=== PATIENT | female | born 1970 | race Caucasian/White ===

== ENCOUNTER 2023-08-30 12:06 | Inpatient (IN) | payer SELFPAY ==
[2023-08-30 13:00] LABS: #Basophils 0.05 10x3/uL (0.0-0.2); %Basophils 0.6 % (0.0-1.0); %Eosinophils 1.9 % (0.0-10.0); %Lymphocytes 12.5 % (21.0-51.0); %Monocytes 6.2 % (0.0-10.0); %Neutrophils 76.9 % (42.0-75.0); Hematocrit 38.4 % (36.0-47.0); Hemoglobin 13.8 g/dL (12.0-16.0); Mean Corpuscular HGB CONC 35.9 g/dL (32.0-36.0); Mean Corpuscular Volume 86.3 fL (78.0-98.0); Mean Platelet Volume 8.7 fL (7.4-10.4); Platelet Count 374 10x3/uL (130-400); RBC Distribution Width 11.5 % (11.5-14.5); Red Blood Cell (RBC) Count 4.45 mill/uL (4.20-5.40)
[2023-08-30 13:10] LABS: ALT (SGPT) 21 U/L (8-55); AST (SGOT) 13 U/L (5-34); Albumin 3.8 g/dL (3.5-5.0); Alkaline Phosphatase 83 U/L (40-110); Anion Gap 12 mmol/L (10-20); BUN (Urea Nitrogen) 14 mg/dL (9.8-20.1); Bilirubin, Total 0.3 mg/dL (0.2-1.2); Calc. Creatinine Clearance 0 mL/min (70-130); Carbon Dioxide 24 mmol/L (22-29); Chloride 91 mmol/L (98-107); Estimated GFR 71; Globulin 3.2 g/dL (2.4-3.5); Glucose 255 mg/dL (70-105); Potassium 4.2 mmol/L (3.5-5.1); Sodium 123 mmol/L (136-145)
[2023-08-30 13:14] LABS: Troponin I Less than 0.010 ng/mL (< 0.028)
[2023-08-30] MEDS ORDERED: Orphenadrine Citrate 60 MG/2 ML VIAL ONE (13:25)
[2023-08-30] MEDS ORDERED: fentaNYL 50 mcg/mL 1 mL Vial ONE (13:25)
[2023-08-30] MEDS ORDERED: Dextrose 50% Abboject 50 ML SYRINGE SLOW IVP PRN (15:14)
[2023-08-30] MEDS ORDERED: Glucagon 1 MG/ML KIT IM PRN (15:14)
[2023-08-30] MEDS ORDERED: Dextrose 5% in Water 1,000 ML IV PRN (15:14)
[2023-08-30 16:10] LABS: Cardiac Risk 2.6 (Less than 4.5)
[2023-08-30] MEDS: HYDROcodone/Acetaminophen 5/325 mg Tablet PO PRN (18:19)
[2023-08-30] MEDS: Sodium Chloride 0.9% 1,000 ML IV SCH (18:20)
[2023-08-30 18:47] VITALS: BMI 38.8
[2023-08-30] MEDS: Atorvastatin Calcium 40 MG TAB PO SCH (20:25)
[2023-08-30] MEDS: OLANZapine 5 MG TAB PO SCH (20:25)
[2023-08-30] MEDS: Gabapentin 300 MG CAP PO SCH (20:25)
[2023-08-30] MEDS: Doxepin HCl 25 MG CAP PO SCH (20:26)
[2023-08-30 20:39] LABS: Anion Gap 20 mmol/L (10-20); BUN (Urea Nitrogen) 15 mg/dL (9.8-20.1); Calc. Creatinine Clearance 118 mL/min (70-130); Carbon Dioxide 20 mmol/L (22-29); Chloride 90 mmol/L (98-107); Estimated GFR 71; Glucose 190 mg/dL (70-105); Potassium 3.7 mmol/L (3.5-5.1); Sodium 126 mmol/L (136-145)
[2023-08-30] MEDS: OXcarbazepine 300 MG TAB PO SCH (21:51)
[2023-08-31 04:51] LABS: Anion Gap 16 mmol/L (10-20); BUN (Urea Nitrogen) 15 mg/dL (9.8-20.1); Calc. Creatinine Clearance 130 mL/min (70-130); Calcium 8.7 mg/dL (7.8-10.44); Carbon Dioxide 23 mmol/L (22-29); Chloride 91 mmol/L (98-107); Estimated GFR 80; Glucose 221 mg/dL (70-105); Potassium 3.6 mmol/L (3.5-5.1); Sodium 126 mmol/L (136-145)
[2023-08-31] MEDS: Levothyroxine Sodium 50 MCG TAB PO SCH (05:02)
[2023-08-31] MEDS: hydrALAZINE 20 MG/ML VIAL SLOW IVP SCH (05:03)
[2023-08-31] MEDS: Insulin Regular, Human 100 UNIT/ML 10 ML VIAL SC PRN (06:56)
[2023-08-31] MEDS: Enoxaparin 40 MG (0.4 mL) SYRINGE SC SCH (08:42)
[2023-08-31] MEDS: Amlodipine 10 MG TAB PO SCH (08:44)
[2023-08-31] MEDS: FLUoxetine HCl 20 MG CAP PO SCH (08:45)
[2023-08-31] MEDS: OXcarbazepine 300 MG TAB PO SCH (08:45)
[2023-08-31] MEDS: metFORMIN 500 MG TAB PO SCH (08:45)
[2023-08-31] MEDS: NS 0.9% w/ 20 MEQ KCL 1,000 ML/1,000 ML BAG IV SCH (15:58)
[2023-08-31] MEDS: Lisinopril 10 MG TAB PO SCH (15:58)
[2023-09-01 07:01] LABS: #Basophils 0.04 10x3/uL (0.0-0.2); %Basophils 0.6 % (0.0-1.0); %Eosinophils 1.9 % (0.0-10.0); %Monocytes 7.5 % (0.0-10.0); %Neutrophils 69.6 % (42.0-75.0); Hematocrit 37.6 % (36.0-47.0); Hemoglobin 12.9 g/dL (12.0-16.0); Mean Corpuscular HGB CONC 34.3 g/dL (32.0-36.0); Mean Corpuscular Hemoglobin 31.1 pg (27.0-31.0); Mean Corpuscular Volume 90.6 fL (78.0-98.0); Platelet Count 324 10x3/uL (130-400); RBC Distribution Width 11.8 % (11.5-14.5); Red Blood Cell (RBC) Count 4.15 mill/uL (4.20-5.40)
[2023-09-01 07:17] LABS: Anion Gap 17 mmol/L (10-20); BUN (Urea Nitrogen) 13 mg/dL (9.8-20.1); Calc. Creatinine Clearance 150 mL/min (70-130); Carbon Dioxide 20 mmol/L (22-29); Chloride 97 mmol/L (98-107); Estimated GFR 99; Glucose 190 mg/dL (70-105); Potassium 4.4 mmol/L (3.5-5.1); Sodium 130 mmol/L (136-145)
[2023-09-01] MEDS: Lisinopril 10 MG TAB PO SCH (09:05)
[2023-09-02] MEDS: dilTIAZem 25 MG/5 ML VIAL SLOW IVP SCH (01:10)
[2023-09-02 02:02] LABS: Magnesium 1.1 mg/dL (1.6-2.6)
[2023-09-02] MEDS: Magnesium 2 GM/50 ML(in water) 2 GM in Premix 1 BAG IVPB SCH (02:28)
[2023-09-02 06:15] LABS: Anion Gap 17 mmol/L (10-20); BUN (Urea Nitrogen) 14 mg/dL (9.8-20.1); Calc. Creatinine Clearance 123 mL/min (70-130); Calcium 9.2 mg/dL (7.8-10.44); Carbon Dioxide 20 mmol/L (22-29); Chloride 96 mmol/L (98-107); Estimated GFR 77; Glucose 217 mg/dL (70-105); Potassium 4.8 mmol/L (3.5-5.1); Sodium 128 mmol/L (136-145)
[2023-09-02] MEDS ORDERED: Iopamidol 370 76% 100 ML VIAL ONE (13:03)
[2023-09-02] MEDS: Acetaminophen 325 MG TAB PO PRN (23:37)
[2023-09-03 06:37] LABS: Anion Gap 17 mmol/L (10-20); BUN (Urea Nitrogen) 17 mg/dL (9.8-20.1); Calc. Creatinine Clearance 143 mL/min (70-130); Calcium 9.2 mg/dL (7.8-10.44); Carbon Dioxide 21 mmol/L (22-29); Chloride 91 mmol/L (98-107); Estimated GFR 87; Glucose 204 mg/dL (70-105); Potassium 4.4 mmol/L (3.5-5.1); Sodium 125 mmol/L (136-145)
[2023-09-03] MEDS: Sodium Chloride 1 GM TAB PO SCH ×2 (15:50→21:34)
[2023-09-04 08:11] LABS: Anion Gap 15 mmol/L (10-20); BUN (Urea Nitrogen) 12 mg/dL (9.8-20.1); Calc. Creatinine Clearance 161 mL/min (70-130); Calcium 9.1 mg/dL (7.8-10.44); Carbon Dioxide 21 mmol/L (22-29); Chloride 90 mmol/L (98-107); Estimated GFR 101; Glucose 224 mg/dL (70-105); Potassium 4.2 mmol/L (3.5-5.1); Sodium 122 mmol/L (136-145)
[2023-09-04] MEDS: Diazepam 10 MG/2 ML SYRINGE IVP SCH ×2 (10:38)
[2023-09-04] MEDS: FLUoxetine HCl 20 MG CAP PO SCH (13:08)
[2023-09-04] MEDS: Sodium Chloride 1 GM TAB PO SCH (15:26)
[2023-09-04] MEDS: cloNIDine 0.1 MG TAB PO SCH (21:22)
[2023-09-04 22:13] LABS: Anion Gap 20 mmol/L (10-20); BUN (Urea Nitrogen) 15 mg/dL (9.8-20.1); Calc. Creatinine Clearance 155 mL/min (70-130); Calcium 9.6 mg/dL (7.8-10.44); Carbon Dioxide 21 mmol/L (22-29); Chloride 89 mmol/L (98-107); Estimated GFR 96; Glucose 209 mg/dL (70-105); Potassium 5.2 mmol/L (3.5-5.1); Sodium 125 mmol/L (136-145)
[2023-09-05] MEDS ORDERED: Calcium Carbonate 500 MG ChewTAB PO PRN (02:38)
[2023-09-05] MEDS: Bisacodyl 5 MG TAB PO SCH (05:46)
[2023-09-05] MEDS: FLUoxetine HCl 20 MG CAP PO SCH (09:39)
[2023-09-05 11:05] LABS: Anion Gap 17 mmol/L (10-20); BUN (Urea Nitrogen) 15 mg/dL (9.8-20.1); Calc. Creatinine Clearance 149 mL/min (70-130); Calcium 9.1 mg/dL (7.8-10.44); Carbon Dioxide 21 mmol/L (22-29); Chloride 90 mmol/L (98-107); Estimated GFR 91; Glucose 288 mg/dL (70-105); Potassium 4.6 mmol/L (3.5-5.1); Sodium 123 mmol/L (136-145)
[2023-09-05] MEDS: Sodium Chloride 1 GM TAB PO SCH (20:40)
[2023-09-05 22:09] LABS: Anion Gap 17 mmol/L (10-20); BUN (Urea Nitrogen) 15 mg/dL (9.8-20.1); Calc. Creatinine Clearance 153 mL/min (70-130); Calcium 9.3 mg/dL (7.8-10.44); Carbon Dioxide 18 mmol/L (22-29); Chloride 90 mmol/L (98-107); Estimated GFR 94; Glucose 182 mg/dL (70-105); Potassium 4.5 mmol/L (3.5-5.1); Sodium 120 mmol/L (136-145)
[2023-09-06 09:11] LABS: Anion Gap 16 mmol/L (10-20); BUN (Urea Nitrogen) 14 mg/dL (9.8-20.1); Calc. Creatinine Clearance 159 mL/min (70-130); Calcium 8.8 mg/dL (7.8-10.44); Carbon Dioxide 20 mmol/L (22-29); Chloride 91 mmol/L (98-107); Estimated GFR 99; Glucose 227 mg/dL (70-105); Potassium 4.5 mmol/L (3.5-5.1); Sodium 122 mmol/L (136-145)
[2023-09-06 12:17] VITALS: BMI 39.6
[2023-09-06] MEDS: cloNIDine 0.2 MG TAB PO SCH (21:32)
[2023-09-07 07:50] LABS: Anion Gap 15 mmol/L (10-20); BUN (Urea Nitrogen) 18 mg/dL (9.8-20.1); Calc. Creatinine Clearance 145 mL/min (70-130); Calcium 8.8 mg/dL (7.8-10.44); Carbon Dioxide 22 mmol/L (22-29); Chloride 90 mmol/L (98-107); Estimated GFR 89; Glucose 205 mg/dL (70-105); Potassium 4.4 mmol/L (3.5-5.1); Sodium 123 mmol/L (136-145)
[2023-09-07] MEDS: NIFEdipine XL 30 MG ER.TAB PO SCH (08:36)
[2023-09-07] MEDS: Sodium Chloride 1 GM TAB PO SCH (15:17)
[2023-09-08 06:31] LABS: Anion Gap 15 mmol/L (10-20); BUN (Urea Nitrogen) 17 mg/dL (9.8-20.1); Calc. Creatinine Clearance 170 mL/min (70-130); Calcium 8.9 mg/dL (7.8-10.44); Carbon Dioxide 19 mmol/L (22-29); Chloride 99 mmol/L (98-107); Estimated GFR 105; Glucose 230 mg/dL (70-105); Potassium 4.6 mmol/L (3.5-5.1); Sodium 128 mmol/L (136-145)
[2023-09-08 13:06] VITALS: BP 156/99; TEMP 97.6
== END 2023-09-08 15:55 | disposition home or self-care (01) | DRG 644 ==
LOC: SUATTDRO 12:06 → ERS 12:06 → 2SW 14:35 → OBSVTOIN 08-31 08:06 → SURG A 09-05 13:54
PROVIDERS: ADMIT Family Medicine; ATTEND Internal Medicine Critical Care Medicine
DX: E22.2 Syndrome of inappropriate secretion of antidiuretic hormone (principal); S22.089A Unspecified fracture of T11-T12 vertebra, initial encounter for closed fracture; E11.9 Type 2 diabetes mellitus without complications; I10 Essential (primary) hypertension; E78.5 Hyperlipidemia, unspecified; Z96.642 Presence of left artificial hip joint; W19.XXXA Unspecified fall, initial encounter; F31.9 Bipolar disorder, unspecified; Z90.710 Acquired absence of both cervix and uterus; Z98.890 Other specified postprocedural states
CPT/HCPCS: 36415; 36416; 70450; 71275; 72125; 72131; 80048; 80053; 80061; 83735; 83930; 83935; 84300; 84439; 84443; 84484; 85025; 93005; 93010; 93306; 96374; 96375; J0360; J1650; J1815; J2360; J3010; J3360; J3475; J3480; J7050; Q9967